=== PATIENT | female | born 2000 | race Caucasian/White ===

== ENCOUNTER 2022-02-04 17:23 | Emergency (ER) | payer SELFPAY ==
[~2022-02-04] VITALS: Ht 162.6 cm; Wt 86.6 kg
[2022-02-04 17:27] VITALS: BP 132/77
--- NOTE | 2022-02-04 17:33 | NUR ---
PT AMB TO BED 3.
--- NOTE | 2022-02-04 17:35 | NUR ---
BIB SELF C/O 05/06 RIGHT LOWER BACK PAIN X YESTERDAY. DENIES TRAUMA.
--- NOTE | 2022-02-04 18:07 | NUR ---
STEFAN JERRY AT BEDSIDE
[2022-02-04] MEDS ORDERED: KETOROLAC 30 MG/ML VIAL IM ONE (18:10)
[2022-02-04] MEDS ORDERED: KETOROLAC 30 MG/ML VIAL ONE (18:12)
[2022-02-04] MEDS ORDERED: LID5T TP (18:30)
[2022-02-04] MEDS ORDERED: CYCL-711 PO (18:30)
[2022-02-04] MEDS ORDERED: IBUP-2213 PO (18:30)
[2022-02-04 18:55] VITALS: BP 113/67
--- NOTE | 2022-02-04 18:55 | NUR ---
Patient discharged with v/s stable. Written and verbal after care instructions given and explained. Patient alert, oriented and verbalized understanding of instructions. Ambulatory with steady gait. All questions addressed prior to discharge. ID band removed. Patient advised to follow up with PMD. Rx of FLEXARIL, IBUPROFEN & LIDODERM PATCH given. Patient educated on indication of medication including possible reaction and side effects. Opportunity to ask questions provided and answered.
== END 2022-02-04 18:55 | disposition home or self-care (01) ==
LOC: MED 17:23
DX: S39.012A Strain of muscle, fascia and tendon of lower back, initial encounter (principal); Z79.899 Other long term (current) drug therapy; X58.XXXA Exposure to other specified factors, initial encounter; Y93.89 Activity, other specified; Y92.89 Other specified places as the place of occurrence of the external cause; Y99.8 Other external cause status
CPT/HCPCS: 81002; 81025; 96372; 99283; J1885